=== PATIENT | female | born 1975 | race Caucasian/White ===

== ENCOUNTER 2016-07-30 14:26 | Inpatient (IN) | payer MEDICAID, OTHER ==
--- NOTE | 2016-07-30 16:24 | XR ---
Right hand HISTORY: Right hand pain, laceration third metacarpophalangeal joint 3 views of the right hand Comparison to prior exam June There is no significant interval change. No radiopaque foreign body, fracture, dislocation. Distortio n of the fifth metacarpal is likely due to remote fracture which is healed, unchanged. Old ulnar styl oid fracture is also present which is nonfused. Remodeling present at the radiocarpal joint is stable finding. There is marginal spurring compatible with osteoarthritis. IMPRESSION: No acute abnormalities evident.
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
[2016-07-30] MEDS ORDERED: ZIPRASIDONE 20 MG VIAL IM PRN (19:29)
[2016-07-30] MEDS ORDERED: ACETAMINOPHEN TAB 325 MG TAB PO PRN (19:29)
[2016-07-30] MEDS ORDERED: MAG HYDROX/AL HYDROX/SIMETH 30 ML CUP PO PRN (19:29)
[2016-07-30] MEDS ORDERED: MAGNESIUM HYDROXIDE 2,400 MG/10 ML CUP PO PRN (19:29)
[2016-07-30] MEDS ORDERED: LORazepam 1 MG TAB PO STA (19:30)
[2016-07-30] MEDS ORDERED: FAMOTIDINE 20 MG TAB PO PRN (19:31)
[2016-07-30] MEDS ORDERED: LORazepam 2 MG/ML SYRINGE IM PRN (19:33)
[2016-07-30 20:57] LABS: Hepatitis B Surface Ag Index 0.04
[2016-07-30 21:15] LABS: Hepatitis C Virus IgG Ab Negative (Negative); Hepatitis C Virus IgG Index 0.03
[2016-07-30 22:02] LABS: Basophils # (A) 0.2 k/uL (0-0.2); Basophils % (A) 2 %; CH 31.8; CHCM 31.6; Eosinophils # (A) 0.2 k/uL (0-0.7); Eosinophils % (A) 2 %; HDW 2.28; HGB 12.4 gm/dL (11.4-16.0); Luc # (Auto) 0.24; Luc % (Auto) 2; Lymphocytes % (A) 38 %; MCH 31.3 pg (25.0-35.0); MCV 101.2 fL (80.0-100.0); Macrocytosis Slight; Mean Platelet Volume 7.6; Monocytes # (A) 0.7 k/uL (0-1.0); Monocytes % (A) 6 %; Neutrophils % (A) 52 %; RBC 3.95 m/uL (3.80-5.40); RDW 13.4 % (11.5-15.5); WBC 13.4 k/uL (3.8-10.6); WBC (Perox) 14.23
[2016-07-30] MEDS: cloZAPine 100 MG TAB PO SCH (22:50)
[2016-07-30] MEDS: TOPIRAMATE 100 MG TAB PO SCH (22:50)
[2016-07-30] MEDS: DIVALPROEX 500 MG TABLET.DR PO SCH (22:50)
[2016-07-30] MEDS: PANTOPRAZOLE 40 MG TABLET PO SCH (22:50)
[2016-07-31 06:56] VITALS: TEMP 97.9
[2016-07-31] MEDS: DIVALPROEX ER 250 MG TAB.ER.24H PO SCH (09:52)
[2016-07-31] MEDS: PARoxetine 20 MG TAB PO SCH (09:52)
[2016-07-31] MEDS: TOPIRAMATE 100 MG TAB PO SCH ×2 (09:52→21:03)
[2016-07-31] MEDS: DIVALPROEX 500 MG TABLET.DR PO SCH ×2 (09:52→21:03)
[2016-07-31 10:59] VITALS: BMI 24.7
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
[2016-07-31] MEDS: LORazepam 1 MG TAB PO PRN (17:27)
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
[2016-07-31] MEDS: PANTOPRAZOLE 40 MG TABLET PO SCH (21:03)
[2016-07-31] MEDS: cloZAPine 100 MG TAB PO SCH (21:03)
[2016-08-01 10:14] LABS: ALT 27 U/L (9-52); AST 21 U/L (14-36); Alkaline Phosphatase 73 U/L (38-126); Anion Gap 10 mmol/L; Blood Urea Nitrogen 19 mg/dL (7-17); Carbon Dioxide 23 mmol/L (22-30); Chloride 107 mmol/L (98-107); Glucose 149 mg/dL (74-99); Non-African American GFR(MDRD) >60 (>60 ml/min/1.73 sqM); Potassium 4.1 mmol/L (3.5-5.1); Sodium 140 mmol/L (137-145); Total Bilirubin 0.3 mg/dL (0.2-1.3)
[2016-08-01] MEDS: STRATTERA 100 MG PO SCH (10:18)
[2016-08-01] MEDS: TOPIRAMATE 100 MG TAB PO SCH ×2 (10:19→21:17)
[2016-08-01] MEDS: PARoxetine 20 MG TAB PO SCH (10:19)
[2016-08-01] MEDS: DIVALPROEX 500 MG TABLET.DR PO SCH (10:20)
[2016-08-01] MEDS: DIVALPROEX ER 250 MG TAB.ER.24H PO SCH (10:22)
--- NOTE | 2016-08-01 15:46 | P.PN ---
Progress Note - Text CLINICAL PROBLEMS: She is a 41-year-old developmentally disabled woman who has a history of intermittent explosive disorder. She presented to unit following a episode of loss of control of her temper at her community mental health agency. She requested discharged. She stated that she would like to return to her [facility] home - "to smoke cigarettes and sleep on my own bed". She took minimal responsibility for her behavior at the [facility] agency She believed that her actions were a legitimate response to her physician denying her request for "privileges" (apparently the [facility] home has levels of care and restrictions in a behavioral care model). 24 HOUR EVENTS: She has been compliant with prescribed medications. She has demonstrated no angry outbursts or episodes of behavioral dyscontrol. She has not required when necessary medications. EXAMINATION: She presented as a disheveled-appearing middle-aged woman who was minimally cooperative with the exam. She maintained eye contact and appeared to attend. She had no distinguishing features are prominent physical abnormalities. She had a blunted and angry facial expression. She was alert and oriented to person, place and time. She had slight psychomotor retardation but no abnormal involuntary movements. She was not agitated. Her speech was spontaneous with decreased rate and volume. Her affect was dysphoric but stable and appropriate. She denied suicidal ideation or wishes. She denied homicidal ideation. She denied depressive cognitions such as hopelessness, helplessness or worthlessness. She denied obsessions, ruminations or phobias. She denied ideas of reference and did not express paranoid ideation. Her thinking was concrete but her associations were coherent and logical. She denied hallucinations and did not appear to be responding to internal stimuli. PERTINENT DATA: BUN from 08/01/2016 was slightly elevated 19. Total protein and albumin were low at 6.0 on 3.4 respectively. Her serum valproic acid level was 62. Her hepatitis B surface antigen, hepatitis B core total antibody, hepatitis C IgG antibody and HIV HIV-1 and 2 antibody rapid were negative. ASSESSMENT: She remains angry and defiant minimally cooperating with the interview. However, she has not demonstrated behavioral dyscontrol. Her serum valproic acid level is subtherapeutic. PLAN: Increase Depakote ER to 500 mg 3 times a day and discontinue regular Depakote. I consolidated her current medications without from [facility]. If she was able to control her behavior over the next 24 hours were discharge her home on 08/02/2016.
[2016-08-01] MEDS: LORazepam 1 MG TAB PO PRN (15:59)
[2016-08-01] MEDS: DIVALPROEX ER 500 MG TAB.ER.24H PO SCH ×2 (15:59→21:18)
[2016-08-01 16:03] VITALS: PULSE 101
[2016-08-01] MEDS: cloZAPine 100 MG TAB PO SCH (21:17)
[2016-08-01] MEDS: PANTOPRAZOLE 40 MG TABLET PO SCH (21:17)
[2016-08-02] MEDS: STRATTERA 100 MG PO SCH (09:24)
[2016-08-02] MEDS: DIVALPROEX ER 500 MG TAB.ER.24H PO SCH (09:27)
[2016-08-02] MEDS: PARoxetine 20 MG TAB PO SCH (09:28)
[2016-08-02] MEDS: LORazepam 1 MG TAB PO PRN (09:28)
[2016-08-02] MEDS: TOPIRAMATE 100 MG TAB PO SCH (09:28)
[2016-08-02 10:23] VITALS: BP 118/55; RESP 20
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
[2016-08-05 08:24] LABS: Norclozapine 46 ng/mL (200-700)
== END 2016-08-02 13:15 | disposition home or self-care (01) | DRG 882 ==
LOC: EC 14:26 → 3MHU 18:51
PROVIDERS: ADMIT Psychiatry & Neurology Psychiatry; ATTEND Psychiatry & Neurology Psychiatry
DX: F43.24 Adjustment disorder with disturbance of conduct (principal); R45.851 Suicidal ideations; F70 Mild intellectual disabilities; S01.81XA Laceration without foreign body of other part of head, initial encounter; S61.214A Laceration without foreign body of right ring finger without damage to nail, initial encounter; F32.9 Major depressive disorder, single episode, unspecified; F17.210 Nicotine dependence, cigarettes, uncomplicated; F12.90 Cannabis use, unspecified, uncomplicated; F41.9 Anxiety disorder, unspecified; F60.3 Borderline personality disorder; F63.81 Intermittent explosive disorder; F90.9 Attention-deficit hyperactivity disorder, unspecified type; K21.9 Gastro-esophageal reflux disease without esophagitis; Z79.899 Other long term (current) drug therapy; Z91.041 Radiographic dye allergy status; Z88.1 Allergy status to other antibiotic agents; Z88.8 Allergy status to other drugs, medicaments and biological substances; W22.8XXA Striking against or struck by other objects, initial encounter; Y92.531 Health care provider office as the place of occurrence of the external cause; Y92.810 Car as the place of occurrence of the external cause
CPT/HCPCS: 80053; 80159; 80164; 80306; 82075; 84443; 85025; 86701; 86704; 86803; 87340; 99285

== ENCOUNTER → 2016-08-07 | Outpatient (CLI) | payer OTHER ==
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
--- NOTE | 2016-08-07 11:32 | XR ---
EXAMINATION TYPE: XR wrist complete LT DATE OF EXAM: 08/07/2016 11:22 AM COMPARISON: 12/04/2012 HISTORY: 41 year-old female left wrist injury and pain for a few weeks TECHNIQUE: 4 views FINDINGS: There is a chronic fracture deformity with corticated fracture margins through the waist of the scaph oid. No abnormal widening of the scapholunate interval. There is degenerative joint space narrowing i nvolving the lunate capitate articulation. Some degenerative joint space narrowing at the radial keila te joint space is also present. No acute fracture or dislocation. IMPRESSION: Chronic injury with SNAC wrist. Consider orthopedic referral. No acute osseous abnormality seen.
--- NOTE | 2016-08-07 16:57 | XR ---
EXAMINATION TYPE: XR spine complete AP and Lat DATE OF EXAM: 08/07/2016 11:22 AM COMPARISON: NONE HISTORY: 41-year-old female paresthesia, spine pain for weeks. TECHNIQUE: 9 views FINDINGS: Cervical spine: There is mild uncovertebral joint arthropathy with corresponding mild to moderate disc/endplate degen erative change in the mid cervical spine. No predental space widening or prevertebral soft tissue swe lling. Alignment is maintained normal odontoid view. Thoracic spine: 12 rib bearing thoracic vertebral bodies. All pedicles are visualized. There is very gentle levoconve x curvature. Vertebral body heights are preserved and alignment is maintained. Lumbar spine: There is a gentle dextroconvex curvature with facet arthropathy in the lower lumbar spine. Vertebral body heights are preserved and alignment is maintained. Endplate spondylosis is mild throughout espec ially in the upper and lower lumbar spine. IMPRESSION: 1. Cervical spine: Mild to moderate spondylotic change in the mid to lower cervical spine. No prevert ebral soft tissue swelling or malalignment. 2. Thoracic spine: No vertebral compression collapse or malalignment. 3. Lumbar spine: Mild scattered degenerative disc disease. Additional facet arthropathy lower lumbar spine. No vertebral compression collapse or malalignment. 4. Very gentle reverse S-shaped curvature of the thoracolumbar spine.
== END | disposition home or self-care (01) ==
LOC: RADCTMAIN 10:39
PROVIDERS: ATTEND Family Medicine
DX: S00.03XA Contusion of scalp, initial encounter (principal); S69.92XA Unspecified injury of left wrist, hand and finger(s), initial encounter; M47.812 Spondylosis without myelopathy or radiculopathy, cervical region; M51.36 Other intervertebral disc degeneration, lumbar region; M46.86 Other specified inflammatory spondylopathies, lumbar region; M43.9 Deforming dorsopathy, unspecified
CPT/HCPCS: 70450; 72082

== ENCOUNTER → 2016-08-12 | Outpatient (CLI) | payer OTHER ==
--- NOTE | 2016-08-12 11:17 | USB ---
Reason for exam: additional evaluation requested from abnormal screening. History: Family history of breast cancer in aunt at age 50. US discontinued breast bx LT of the left breast, February 05, 2016. Physical Findings: Nurse Summary: rash on bilateral breasts (nurse dw). US Breast BILAT Right breast ultrasound including all four quadrants, the retroareolar region and axilla demonstrates a 0.5 x 0.4 x 0.2cm oval, cystic lesion at 12 o'clock, a 0.4 x 0.4 x 0.2cm oval, solid, vascular, lymph node at 8 o'clock and a 0.5 x 0.3 x 0.2cm cystic cluster at the posterior nipple. Left breast ultrasound including all four quadrants, the retroareolar region and axilla demonstrates a 0.4 x 0.3 x 0.3cm round, cystic lesion at 2 o'clock and a 0.6 x 0.5 x 0.2cm oval, cystic lesion at 11 o'clock. These results were verbally communicated with the patient and result sheet given to the patient on 08/12/16. ASSESSMENT: Benign, BI-RAD 2 RECOMMENDATION: Routine screening mammogram of both breasts in 6 months. Back on schedule.
== END | disposition home or self-care (01) ==
LOC: RADUSWWP 10:18
PROVIDERS: ATTEND Surgery
DX: N60.09 Solitary cyst of unspecified breast (principal)

== ENCOUNTER 2016-09-18 08:48 | Day surgery (SDC) | payer OTHER ==
[2016-09-16 11:56] VITALS: BMI 26.3
[~2016-09-18 08:48] MED LIST: LACTATED RINGERS 1,000 ML IV SCH; LIDOCAINE 1% INJ 10MG/ML (20 ML MDV) ONE; PROPOFOL 10 MG/ML 20 ML VIAL IV ONE; Pre Op ABX Message 1 EACH MISC MISCELLANE ONE
[2016-09-18 09:01] VITALS: RESP 16; TEMP 97.5
[2016-09-18] MEDS ORDERED: LIDOCAINE 1% 20 ML VIAL (10MG/ML) FOR IV START SQ ONE (09:06)
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
--- NOTE | 2016-09-18 09:54 | P.OP ---
Date of Procedure: 09/18/16 Preoperative Diagnosis: GERD Postoperative Diagnosis: Antral gastritis No evidence of hiatal hernia Mild esophagitis Procedure(s) Performed: EGD Anesthesia: MAC Surgeon: Romero Waters Pathology: other (Antrum, esophagus) Condition: stable Disposition: PACU Description of Procedure: The patient's placed on the endoscopy table in the lateral position. She received IV sedation. The gastroscope some placed oropharynx and passed into the esophagus and into the stomach. The scope was then placed through the pylorus. The first and second portion of the duodenum appeared normal. The scope was then brought back and the antrum and this appeared inflamed. A biopsies was performed. The remainder of the stomach appeared normal. The gastroscope was retroflexed and there was no hiatal hernia seen. The GE junction was at 40 cm. The distal esophagus. Minimal inflamed and a biopsy was performed. The proximal esophagus appeared normal. Scope was withdrawn for patient.
[2016-09-18 10:17] VITALS: BP 115/75; PULSE 87
== END 2016-09-18 10:30 | disposition home or self-care (01) ==
LOC: ORWHC2ENDO 08:48
PROVIDERS: ATTEND Surgery
DX: K29.50 Unspecified chronic gastritis without bleeding (principal); K21.0 Gastro-esophageal reflux disease with esophagitis; K20.0 Eosinophilic esophagitis; Z79.899 Other long term (current) drug therapy; F90.9 Attention-deficit hyperactivity disorder, unspecified type; F41.9 Anxiety disorder, unspecified; F31.9 Bipolar disorder, unspecified; F32.9 Major depressive disorder, single episode, unspecified; F17.200 Nicotine dependence, unspecified, uncomplicated; Z88.1 Allergy status to other antibiotic agents; Z91.041 Radiographic dye allergy status
CPT/HCPCS: 88305; 88342; 84703; 43239; J2001; J2704

== ENCOUNTER → 2016-11-06 | Outpatient (CLI) | payer OTHER ==
--- NOTE | 2016-11-06 10:30 | NM ---
EXAMINATION TYPE: NM hepatobiliary w EF DATE OF EXAM: 11/06/2016 9:54 AM COMPARISON: CT abdomen and pelvis June 14, 2016. HISTORY: Right upper quadrant abdominal pain. TECHNIQUE: After the intravenous administration of 5 mCi Tc 99m Mebrofenin hepatobiliary scintigraphy is performed. Immediate images post injection. FINDINGS: There is satisfactory initial accumulation of tracer by the liver. The gallbladder is visualized wit hin 15 minutes. The small bowel activity is not well noted even after 60 minutes. At one hour 8 oun rachelle of oral ensure plus is given to mimic CCK and gallbladder ejection fraction is calculated at 27 % , diminished from the normal range. Therefore there is no scintigraphic evidence of cystic or common bile duct obstruction to suggest acute cholecystitis . Ejection fraction is 27%, diminished from the normal range, scintigraphic findings are consistent with chronic cholecystitis or gallbladder dyskin esia. IMPRESSION: Ejection fraction is 27%, diminished from the normal range, scintigraphic findings are co nsistent with gallbladder dyskinesia.
== END | disposition home or self-care (01) ==
LOC: RADNMMAIN 06:50
PROVIDERS: ATTEND Surgery
DX: R10.13 Epigastric pain (principal)
CPT/HCPCS: 78226; A9537

== ENCOUNTER 2016-12-25 06:15 | Day surgery (SDC) | payer OTHER ==
[2016-12-19 12:51] VITALS: BMI 32.1
[~2016-12-25 06:15] MED LIST changes: +CLINDAMYCIN 900 MG in DEXTROSE 5% IN WATER 50 ML IVPB ONE; +FAMOTIDINE 20 MG/2 ML VIAL IV PRN; +HEPARIN SODIUM,PORCINE 5,000 UNIT/ML 1 ML VIAL SQ ONE; +HYDROmorphone 1 MG/ML 1 ML SYRINGE IVP PRN; +LIDOCAINE 1% 20 ML VIAL (10MG/ML) FOR IV START INTRADERMA PRN; -LIDOCAINE 1% INJ 10MG/ML (20 ML MDV) ONE; +MIDAZOLAM 2 MG/2 ML VIAL IV PRN; +ONDANSETRON 4 MG/2 ML VIAL IVP PRN; -PROPOFOL 10 MG/ML 20 ML VIAL IV ONE; -Pre Op ABX Message 1 EACH MISC MISCELLANE ONE
[2016-12-25] MEDS ORDERED: SUCCINYLCHOLINE CHLORIDE 100 MG/5 ML SYR IV ONE (08:01)
[2016-12-25] MEDS ORDERED: LIDOCAINE 1% INJ 10MG/ML (20 ML MDV) ONE (08:01)
[2016-12-25] MEDS ORDERED: GLYCOPYRROLATE 0.2 MG/ML 2 ML VIAL ONE (08:01)
[2016-12-25] MEDS ORDERED: MIDAZOLAM 2 MG/2 ML VIAL ONE (08:01)
[2016-12-25] MEDS ORDERED: PROPOFOL 10 MG/ML 20 ML VIAL IV ONE (08:01)
[2016-12-25] MEDS ORDERED: ROCURONIUM BROMIDE 10 MG/ML 10 ML VIAL IV ONE (08:01)
[2016-12-25] MEDS ORDERED: NEOSTIGMINE 1 MG/ML 10 ML VIAL ONE (08:01)
[2016-12-25] MEDS ORDERED: fentaNYL (PF) 50 MCG/ML 2 ML AMP ONE (08:01)
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
[2016-12-25] MEDS ORDERED: BUPIVACAIN-EPI 0.25%-1:200,000 30 ML VIAL SQ ONE (08:16)
--- NOTE | 2016-12-25 08:42 | P.OP ---
Date of Procedure: 12/25/16 Preoperative Diagnosis: Cholecystitis Postoperative Diagnosis: Cholecystitis Procedure(s) Performed: Laparoscopic cholecystectomy Implants: Anesthesia: MONO Surgeon: Romero Waters Pathology: other (Gallbladder) Condition: stable Disposition: PACU Indications for Procedure: Operative Findings: Description of Procedure: MThe patient was placed on the operating table. The patient received a general endotracheal tube anesthesia. The patients abdomen was prepped and draped in the usual sterile fashion. Through an infraumbilical stab incision , the fascia of the anterior abdominal wall was grasped with a pair of Kochers and then the Veress needle was placed in the peritoneal cavity. Position of the Veress needle was confirmed with positive drop test. The abdomen was then insufflated. After adequate insufflation, the 10 mm trocar was placed in the peritoneal cavity. Following this the laparoscope was placed in the peritoneal cavity. The patient was placed in the head-up, right side up position and then a 5 mm trocar was placed in the right lateral and right subcostal position under direct visualization. A 8 mm trocar was placed in the epigastric position. The gallbladder was grasped in the fundus and infundibulum. Traction on the gallbladder was placed in the lateral and the cephalad positions. The triangle of Calot was visualized.. The cystic duct was bluntly dissected until the union of the cystic duct and common bile duct was seen. The cystic duct was then divided and sealed with the Harmonic scissors. A PDS Endoloop was then placed throughout the cystic duct stump. The cystic artery divided and sealed with the Harmonic scissors. The gallbladder was then removed from the liver bed using Harmonic scissors. The gallbladder was then extracted through the epigastric port site. Operative field was checked for any bleeding spots and Harmonic scissors was used to coagulate the liver bed. The abdomen was irrigated. The trocars were removed. The skin was closed using interrupted 3-0 Vicryl suture. Dermabond dressing were applied. The patient tolerated the procedure well.
[2016-12-25 08:57] VITALS: TEMP 96.8
[2016-12-25 09:21] VITALS: RESP 18
[2016-12-25] MEDS ORDERED: LACTATED RINGERS 1,000 ML IV ONE (09:32)
[2016-12-25] MEDS ORDERED: HYDROcodone/APAP 7.5-325MG 1 EACH TAB PO ONE (09:51)
[2016-12-25 10:20] VITALS: BP 129/68; PULSE 85
== END 2016-12-25 10:43 | disposition home or self-care (01) ==
LOC: OR 06:15
PROVIDERS: ATTEND Surgery
DX: K81.1 Chronic cholecystitis (principal); K21.9 Gastro-esophageal reflux disease without esophagitis; F90.9 Attention-deficit hyperactivity disorder, unspecified type; F41.9 Anxiety disorder, unspecified; F31.9 Bipolar disorder, unspecified; F17.200 Nicotine dependence, unspecified, uncomplicated; Z91.041 Radiographic dye allergy status; Z88.1 Allergy status to other antibiotic agents; Z79.899 Other long term (current) drug therapy; Z98.51 Tubal ligation status; Z86.14 Personal history of Methicillin resistant Staphylococcus aureus infection
CPT/HCPCS: 47562; 81025; 88304; J2250; J1644; J2710; J2405; J2001; J3010; J0330; J2704

== ENCOUNTER 2017-03-24 20:07 | Emergency (ER) | payer OTHER ==
[2017-03-24] MEDS ORDERED: SODIUM CHLORIDE 0.9% 1,000 ML IV ONE (20:42)
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
[2017-03-24] MEDS ORDERED: cloZAPine 100 MG TAB PO SCH (21:00)
[2017-03-24] MEDS ORDERED: FAMOTIDINE 20 MG TAB PO SCH (21:00)
[2017-03-24 21:21] LABS: Basophils # (A) 0.1 k/uL (0-0.2); Basophils % (A) 1 %; CH 33.3; CHCM 34.7; Eosinophils # (A) 0.3 k/uL (0-0.7); Eosinophils % (A) 2 %; HDW 2.55; HGB 14.4 gm/dL (11.4-16.0); Luc # (Auto) 0.38; Luc % (Auto) 3; Lymphocytes # (A) 4.5 k/uL (1.0-4.8); Lymphocytes % (A) 34 %; MCH 32.3 pg (25.0-35.0); MCHC 33.5 g/dL (31.0-37.0); MCV 96.5 fL (80.0-100.0); Mean Platelet Volume 8.2; Monocytes # (A) 1.1 k/uL (0-1.0); Monocytes % (A) 8 %; Neutrophils # (A) 6.7 k/uL (1.3-7.7); Neutrophils % (A) 51 %; RBC 4.45 m/uL (3.80-5.40); RDW 14.9 % (11.5-15.5); WBC 13.1 k/uL (3.8-10.6); WBC (Perox) 12.02
[2017-03-24 21:33] LABS: ALT 74 U/L (9-52); AST 33 U/L (14-36); Acetaminophen <10.0 ug/mL; Alcohol <10 mg/dL; Alkaline Phosphatase 124 U/L (38-126); Anion Gap 8 mmol/L; Blood Urea Nitrogen 10 mg/dL (7-17); Calcium 9.1 mg/dL (8.4-10.2); Carbon Dioxide 23 mmol/L (22-30); Chloride 108 mmol/L (98-107); Glucose 100 mg/dL (74-99); Non-African American GFR(MDRD) >60 (>60 ml/min/1.73 sqM); Potassium 4.2 mmol/L (3.5-5.1); Salicylate <1.0 mg/dL; Sodium 139 mmol/L (137-145); Total Bilirubin 0.2 mg/dL (0.2-1.3); Total Protein 6.7 g/dL (6.3-8.2)
[2017-03-24] MEDS ORDERED: DIVALPROEX 500 MG TABLET.DR PO SCH (22:00)
[2017-03-24] MEDS ORDERED: TOPIRAMATE 100 MG TAB PO SCH (22:00)
[2017-03-24 22:04] LABS: INR 1.1 (<1.2); Partial Thromboplastin Time 25.3 sec (22.0-30.0); Prothrombin Time 10.9 sec (9.0-12.0)
[2017-03-25 01:20] VITALS: BP 133/60; PULSE 98; RESP 16; TEMP 98.4
== END 2017-03-25 01:20 | disposition home or self-care (01) ==
LOC: EC 20:07
DX: F32.9 Major depressive disorder, single episode, unspecified (principal); R45.1 Restlessness and agitation; K21.9 Gastro-esophageal reflux disease without esophagitis; F90.9 Attention-deficit hyperactivity disorder, unspecified type; F41.9 Anxiety disorder, unspecified; F17.200 Nicotine dependence, unspecified, uncomplicated; Z79.899 Other long term (current) drug therapy; Z88.1 Allergy status to other antibiotic agents; Z91.041 Radiographic dye allergy status; Z88.8 Allergy status to other drugs, medicaments and biological substances
CPT/HCPCS: 99284; 36415; 93005; 80053; 85025; 85610; 85730; 81025; 80306; 83520 ×2; 80320; 96360; 96361 ×3; S0136

== ENCOUNTER → 2017-06-10 | Outpatient (CLI) | payer OTHER ==
--- NOTE | 2017-06-11 10:47 | MM ---
Reason for exam: screening (asymptomatic). Last mammogram was performed 1 year and 4 months ago. History: Family history of breast cancer in aunt at age 50. US discontinued breast bx LT of the left breast, February 05, 2016. Physical Findings: A clinical breast exam by your physician is recommended on an annual basis and results should be correlated with mammographic findings. MG Screening Mammo w CAD Bilateral CC and MLO view(s) were taken. Prior study comparison: January 24, 2016, bilateral MG diagnostic mammo w CAD HAL. No significant changes when compared with prior studies. ASSESSMENT: Benign, BI-RAD 2 RECOMMENDATION: Routine screening mammogram of both breasts in 1 year.
== END | disposition home or self-care (01) ==
LOC: RADMAMWWP 15:34
PROVIDERS: ATTEND Family Medicine
DX: Z12.31 Encounter for screening mammogram for malignant neoplasm of breast (principal)

== ENCOUNTER 2018-11-01 19:11 | Emergency (ER) | payer OTHER ==
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
[2018-11-01 20:11] LABS: Amphetamine Screen,Urine Not Detected (NotDetected); Barbiturate Screen,Urine Not Detected (NotDetected); Benzodiazepines Screen,Urine Not Detected (NotDetected); Cocaine Screen,Urine Not Detected (NotDetected); Methadone Screen, Urine Not Detected (NotDetected); Opiate Screen,Urine Not Detected (NotDetected); Oxycodone Screen, Urine Not Detected (NotDetected); Phencyclidine Screen,Urine Not Detected (NotDetected); Tricyclic Antidepressant,Urine Detected (NotDetected); Urn Cannabinoid Scrn Detected (NotDetected)
[2018-11-01 21:31] VITALS: BP 117/75; PULSE 85; RESP 19; TEMP 97.9
== END 2018-11-01 21:26 | disposition home or self-care (01) ==
LOC: EC 19:11
DX: R45.89 Other symptoms and signs involving emotional state (principal); K21.9 Gastro-esophageal reflux disease without esophagitis; F17.200 Nicotine dependence, unspecified, uncomplicated; Z86.14 Personal history of Methicillin resistant Staphylococcus aureus infection; Z87.59 Personal history of other complications of pregnancy, childbirth and the puerperium; Z79.899 Other long term (current) drug therapy; Z88.1 Allergy status to other antibiotic agents; Z91.041 Radiographic dye allergy status; Z91.5 Personal history of self-harm
CPT/HCPCS: 80306; 99284

== ENCOUNTER → 2018-12-29 | Outpatient (CLI) | payer OTHER ==
--- NOTE | 2018-12-30 13:54 | MM ---
Reason for exam: screening (asymptomatic). Last mammogram was performed 1 year and 7 months ago. History: Family history of breast cancer in aunt at age 50. US discontinued breast bx LT of the left breast, February 05, 2016. Physical Findings: A clinical breast exam by your physician is recommended on an annual basis and results should be correlated with mammographic findings. MG Screening Mammo w CAD Bilateral CC and MLO view(s) were taken. Prior study comparison: June 10, 2017, bilateral MG screening mammo w CAD. January 24, 2016, bilateral MG diagnostic mammo w CAD HAL. The breast tissue is heterogeneously dense. This may lower the sensitivity of mammography. No suspicious abnormality. No significant new finding when compared with prior studies. ASSESSMENT: Negative, BI-RAD 1 RECOMMENDATION: Routine screening mammogram of both breasts in 1 year.
== END | disposition home or self-care (01) ==
LOC: RADMAMWWP 11:08
PROVIDERS: ATTEND Family Medicine
DX: Z12.31 Encounter for screening mammogram for malignant neoplasm of breast (principal)
CPT/HCPCS: 77067

== ENCOUNTER → 2019-05-21 | Outpatient (CLI) | payer OTHER ==
--- NOTE | 2019-05-21 15:33 | XR ---
EXAMINATION TYPE: XR cervical spine comp DATE OF EXAM: 05/21/2019 COMPARISON: 08/07/2016 HISTORY: Left arm numbness TECHNIQUE: 5 view cervical spine FINDINGS: There is straightening of the cervical spine in lateral projection. Prevertebral space is n ormal. There is loss of disc height diffusely throughout the cervical spine. Posterior spinal lamella r line is intact. Foramen as visualized are Normal. Left foramen appear under rotated limiting their evaluation. IMPRESSION: 1. Degenerative disc changes through the cervical spine
--- NOTE | 2019-05-21 15:33 | XR ---
EXAMINATION TYPE: XR shoulder complete LT DATE OF EXAM: 05/21/2019 COMPARISON: NONE HISTORY: Pain TECHNIQUE: Shoulder examined in 3 views FINDINGS: The humeral head articulates with the glenoid. The acromio-clavicular junction is normal. No acute fractures or dislocations are evident. A follow up study can be performed 7-10 days from acute trauma for continued pain. IMPRESSION: 1. Normal 3 view left Shoulder
== END | disposition home or self-care (01) ==
LOC: RADXRMAIN 10:20
PROVIDERS: ATTEND Family Medicine
DX: M50.30 Other cervical disc degeneration, unspecified cervical region (principal); R20.2 Paresthesia of skin
CPT/HCPCS: 72050

== ENCOUNTER 2019-05-30 20:59 | Emergency (ER) | payer OTHER ==
[2019-05-30] MEDS ORDERED: DIPH,PERTUS(ACELL)TETVAC-LF 0.5 ML VIAL IM ONE (21:02)
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
[2019-05-30 21:13] VITALS: BP 127/77; PULSE 92; RESP 16; TEMP 98.8
--- NOTE | 2019-05-30 21:35 | XR ---
EXAMINATION TYPE: XR hand complete RT DATE OF EXAM: 05/30/2019 COMPARISON: 07/30/2016 HISTORY: Hand pain TECHNIQUE: Three-view right hand FINDINGS: There is an old fifth metacarpal fracture. Mild degenerative joint changes are present. Fol low-up exams can be performed 7-10 days from acute trauma for continued pain. IMPRESSION: 1. No acute osseous abnormality.
--- NOTE | 2019-05-30 21:53 | CT ---
EXAMINATION TYPE: CT brain wo con DATE OF EXAM: 05/30/2019 COMPARISON: None INDICATION: forehead hematoma DLP: 1095.4 mGycm, Automated exposure control for dose reduction was used. CONTRAST: None CT of the brain is performed utilizing 3 mm thick sections through the posterior fossa and 3 mm thick sections through the remaining calvarium. Study is performed within 24 hours of arrival to the hosp [facility]. No abnormal hyperdensity is present to suggest an acute intracranial hemorrhage. No mass lesion is evident. No acute infarcts are evident. Ventricles and sulci are appropriate for the patient age. Paranasal sinuses and mastoid air cells within the [id number] are clear. Very minimal central soft tissue swelling is present over the for head. No underlying fracture is. IMPRESSIONS: 1. Normal CT Brain 2. Minimal soft tissue swelling central 400
== END 2019-05-30 22:39 | disposition home or self-care (01) ==
LOC: EC 20:59
DX: F29 Unspecified psychosis not due to a substance or known physiological condition (principal); Z23 Encounter for immunization; F41.9 Anxiety disorder, unspecified; K21.9 Gastro-esophageal reflux disease without esophagitis; E78.5 Hyperlipidemia, unspecified; F17.200 Nicotine dependence, unspecified, uncomplicated; F31.9 Bipolar disorder, unspecified; Z79.899 Other long term (current) drug therapy; Z88.1 Allergy status to other antibiotic agents; Z91.041 Radiographic dye allergy status; Z87.19 Personal history of other diseases of the digestive system; Z86.14 Personal history of Methicillin resistant Staphylococcus aureus infection
CPT/HCPCS: 70450; 82075; 90471; 90715; 99285

== ENCOUNTER → 2019-09-14 | Outpatient (CLI) | payer OTHER ==
[2019-09-14 17:10] LABS: Valproic Acid (Depakene) 71.1 ug/mL (50.0-100.0)
[2019-09-14 17:20] LABS: ALT 10 U/L (8-44); AST 13 U/L (13-35); Albumin/Globulin Ratio 2.29 (1.60-3.17); Alkaline Phosphatase 71 U/L (41-126); Bilirubin, Conjugated <0.20 mg/dL (0.20-0.40); Cholesterol 116 mg/dL (0-200); Globulin 1.7 g/dL (1.6-3.3); Glucose 75 mg/dL (70-110); LDL Cholesterol,Calculated 55.8 mg/dL (0.0-131.0); Total Bilirubin 0.3 mg/dL (0.3-1.2); Total Protein 5.6 g/dL (6.2-8.2)
[2019-09-15 08:01] LABS: Clozapine (Clozaril) 147 ng/mL (200-700); Norclozapine 52 ng/mL (200-700)
== END | disposition home or self-care (01) ==
LOC: LABWHC1 08:49
PROVIDERS: ATTEND Psychiatry & Neurology Psychiatry
DX: Z51.81 Encounter for therapeutic drug level monitoring (principal); Z79.899 Other long term (current) drug therapy
CPT/HCPCS: 36415; 80061; 80076; 80159; 80164; 82947; 84439; 84443

== ENCOUNTER 2019-11-25 12:51 | Emergency (ER) | payer OTHER ==
[2019-11-25 12:59] VITALS: BP 109/75; PULSE 97; RESP 18; TEMP 97.8
[2019-11-25] MEDS ORDERED: LIDOCAINE 1% INJ 10MG/ML (20 ML MDV) SQ STA (13:24)
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
[2019-11-25] MEDS ORDERED: DIPH,PERTUS(ACELL)TETVAC-LF 0.5 ML VIAL IM ONE (13:30)
[2019-11-25] MEDS ORDERED: ACETAMINOPHEN TAB 325 MG TAB PO STA (13:48)
== END 2019-11-25 16:05 | disposition home or self-care (01) ==
LOC: EC 12:51
DX: S01.81XA Laceration without foreign body of other part of head, initial encounter (principal); K21.9 Gastro-esophageal reflux disease without esophagitis; F17.200 Nicotine dependence, unspecified, uncomplicated; Z23 Encounter for immunization; Z86.14 Personal history of Methicillin resistant Staphylococcus aureus infection; Z79.899 Other long term (current) drug therapy; Z88.1 Allergy status to other antibiotic agents; Z91.041 Radiographic dye allergy status; W22.8XXA Striking against or struck by other objects, initial encounter
CPT/HCPCS: 90715; 99283; 12013; 90471; J2001